=== PATIENT | male | born 1980 | race Caucasian/White ===

== ENCOUNTER 2016-07-08 12:14 | Emergency (ER) | payer OTHER ==
[2016-07-08] MEDS ORDERED: IOPAMIDOL 300 (61%) 150 ML VIAL IV ONE (12:15)
[2016-07-08 13:44] LABS: ABSOLUTE NEUTROPHIL COUNT 8.4 K/mm3 (1.8-7.7); BASO # 0.1 K/mm3 (0.0-0.2); BASO % 0.6 % (0.2-1.0); EOS # 0.1 (0.0-0.5); EOS % 1.3 % (0.9-2.9); HEMATOCRIT 50.5 % (32.0-52.0); HEMOGLOBIN 18.4 gm/l (14.0-18.0); IMM NEUT% 0.3 % (0-1); LYMPH # 1.2 (1.0-4.8); LYMPH % 11.7 % (15-45); MEAN CELL VOLUME 94.6 fl (80.0-94.0); MEAN CORPUSCULAR HEMOGLOBIN 34.5 pg (27.0-31.0); MEAN CORPUSCULAR HGB CONC 36.4 g/dl (33.0-37.0); MEAN PLATELET VOLUME 11.3 fl (7.4-10.4); MONO # 0.7 (0.0-0.8); MONO % 6.7 % (4-12); NEUT % 79.4 % (43-75); PLATELET COUNT 71 K/mm3 (130-400); RED CELL DISTRIBUTION WIDTH 12.4 % (11.5-14.5)
[2016-07-08 13:53] LABS: ALB/GLOB RATIO 1.3 (>1.0); ALBUMIN 4.5 gm/dL (3.5-5.7); CALCIUM 9.5 mg/dL (8.6-10.3)
[2016-07-08] MEDS ORDERED: SODIUM CHLORIDE 0.9% 1,000 ML ONE ×2 (14:22→16:29)
[2016-07-08] MEDS ORDERED: ACETAMINOPHEN 500 MG TABLET ONE (14:22)
[2016-07-08 14:41] LABS: ACETONE,SERUM NEGATIVE (NEGATIVE)
[2016-07-08] MEDS ORDERED: POTASSIUM CHLORIDE 10MEQ/100ML 100 ML IV ONE ×2 (14:56→16:30)
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
[2016-07-08 15:31] LABS: SPECIFIC GRAVITY 1.015 (1.001-1.030); URINE BILIRUBIN NEGATIVE (NEGATIVE); URINE BLOOD TRACE (NEGATIVE); URINE GLUCOSE (UA) 1+ (NEGATIVE); URINE LEUKOCYTE ESTERASE NEGATIVE (NEGATIVE); URINE NITRITE NEGATIVE (NEGATIVE); URINE PROTEIN 1+ (NEGATIVE); URINE UROBILINOGEN NORMAL (0-1 mg/dl)
[2016-07-08 15:32] LABS: URINE APPEARANCE CLEAR; URINE COLOR YELLOW
[2016-07-08 15:38] LABS: URINE BACTERIA NONE SEEN; URINE EPITHELIAL CELLS 0-2 /hpf; URINE RBC 0-2 /hpf; URINE WBC 0-2 /hpf
[2016-07-08 15:50] LABS: AMPHETAMINES/METHAMPHETAMINES NEGATIVE (NEGATIVE); COCAINE NEGATIVE (NEGATIVE); MARIJUANA NEGATIVE (NEGATIVE); METHADONE NEGATIVE (NEGATIVE); OPIATES NEGATIVE (NEGATIVE); TRICYCLIC ANTIDEPRESSANTS NEGATIVE (NEGATIVE)
--- NOTE | 2016-07-08 16:18 | US ---
Exam: Gallbladder ultrasound COMPARISON: 03/29/[address] 07/08/2016 INDICATION: Diarrhea and abdominal pain. Cholelithiasis. FINDINGS: Gallbladder ultrasound was obtained. Solitary mobile stone was identified within the gallbladder. There is no gallbladder wall thickening or pericholecystic fluid. There was a negative sonographic Iqbal's sign. Common bile duct normal at 3 mm. IMPRESSION: Cholelithiasis without sonographic features of acute cholecystitis or biliary ductal dilation. Report was uploaded to the EMR at 1614 hours 07/08/2016.
[2016-07-08] MEDS ORDERED: METFORMIN HCL 500 MG TABLET ONE (16:30)
[2016-07-08 16:42] LABS: VENOUS BLOOD GAS BASE EXCESS 1.9 mmol/L (-2.0-2.0); VENOUS BLOOD GAS HCO3 25.9 mmol/L (22.0-27.0)
[2016-07-08 18:19] LABS: CALCIUM 8.1 mg/dL (8.6-10.3)
== END 2016-07-08 18:50 | disposition left against medical advice (07) ==
LOC: ED 12:14
DX: R40.4 Transient alteration of awareness (principal); R73.9 Hyperglycemia, unspecified; E87.6 Hypokalemia; E87.1 Hypo-osmolality and hyponatremia; F17.210 Nicotine dependence, cigarettes, uncomplicated; V57.0XXA Driver of pick-up truck or van injured in collision with fixed or stationary object in nontraffic accident, initial encounter; Y92.410 Unspecified street and highway as the place of occurrence of the external cause
CPT/HCPCS: 83690; 82009; 82140; 82803; 85025; 87040; 80305; 80048; 80053; 80307; 81001; 74177; 72125; 70450; 76705; 99284 ×2; 96361; 96365; 96366; 82962; J3480 ×2; A9270; J7030 ×2; Q9967